=== PATIENT | male | born 1980 | race Caucasian/White ===

== ENCOUNTER 2016-11-26 07:57 | Emergency (ER) | payer OTHER ==
[2016-11-26 08:18] VITALS: RESP 18; BMI 30.6
[2016-11-26] MEDS ORDERED: Amoxicillin-Clav 875-125 mg Tab PO STA (09:02)
[2016-11-26 09:19] VITALS: BP 140/88; PULSE 73; TEMP 98; O2SAT 99
--- NOTE | 2016-11-26 09:42 | ED PDOC ---
Arrival/HPI - General Chief Complaint: ENT Problem Time Seen by Provider: 11/26/16 09:01 Historian: Patient - History of Present Illness Narrative History of Present Illness (Text): 11/26/16 08:57 A 35 year old male, whose past medical history includes allergies, presents to the emergency department complaining of a sore throat for the past 5 days. Patient reports some dysphagia and a mild change in voice but denies any congestion, rhinorrhea, fever, cough, or any other complaints at this time. PMD: None Time/Duration: Other (5 days) Symptom Onset: Sudden Symptom Course: Unchanged Quality: Other Activities at Onset: Rest Context: Home Past Medical History - Provider Review Nursing Documentation Reviewed: Yes - Psychiatric Hx Substance Use: No - Surgical History Hx Musculoskeletal Surgery: Yes (left knee surgery) - Anesthesia Hx Anesthesia: Yes Hx Anesthesia Reactions: No Hx Malignant Hyperthermia: No Family/Social History - Physician Review Nursing Documentation Reviewed: Yes Family/Social History: Unknown Family HX Smoking Status: Light Smoker < 10 Cigarettes Daily Hx Alcohol Use: Yes Frequency of alcohol use: Few days per week Hx Substance Use: No Allergies/Home Meds Allergies/Adverse Reactions: Allergies No Known Allergies Allergy (Verified 11/26/16 08:18) Review of Systems - Physician Review All systems were reviewed & negative as marked: Yes - Review of Systems Constitutional: absent: Fevers ENT: Sore Throat, Other (Dysphagia). absent: Rhinorrhea, Sinus Congestion Physical Exam Vital Signs Reviewed: Yes Vital Signs Temp Pulse Resp BP Pulse Ox 11/26/16 09:18 98 F 73 18 140/88 99 11/26/16 08:13 97.9 F 87 18 152/101 H 98 Temperature: Afebrile Blood Pressure: Hypertensive Pulse: Regular Respiratory Rate: Normal Appearance: Positive for: Well-Appearing, Non-Toxic, Comfortable Pain Distress: None Mental Status: Positive for: Alert and Oriented X 3 - Systems Exam Head: Present: Atraumatic, Normocephalic Pupils: Present: PERRL Extroacular Muscles: Present: EOMI Conjunctiva: Present: Normal Mouth: Present: Moist Mucous Membranes Pharnyx: Present: ERYTHEMA (on the right). No: EXUDATE, TONSILS ENLARGED, Uvular Deviation, Muffled/Hoarse Voice Neck: Present: Normal Range of Motion, Lymphadenopathy (on the right with tenderness on palpation) Respiratory/Chest: Present: Clear to Auscultation, Good Air Exchange. No: Respiratory Distress, Accessory Muscle Use Cardiovascular: Present: Regular Rate and Rhythm, Normal S1, S2. No: Murmurs Abdomen: Present: Normal Bowel Sounds. No: Tenderness, Distention, Peritoneal Signs Back: Present: Normal Inspection Upper Extremity: Present: Normal Inspection. No: Cyanosis, Edema Lower Extremity: Present: Normal Inspection. No: Edema Neurological: Present: GCS=15, CN II-XII Intact, Speech Normal Skin: Present: Warm, Dry, Normal Color. No: Rashes Psychiatric: Present: Alert, Oriented x 3, Normal Insight, Normal Concentration Medical Decision Making ED Course and Treatment: 11/26/16 08:57 Impression: A 35 year old male with a sore throat. Differential Diagnosis include but are not limited to: pharyngitis Plan: -- Augmentin -- Reassess and disposition Progress Notes: On re-evaluation, the patient is in no acute distress. I have discussed the results and plan with the patient, who expresses understanding. Patient in agreement with plan to discharged home. Patient is stable for discharge. Patient was instructed to follow up with physician/clinic in 1-2 days or return if symptoms worsen or new concerning symptoms arise. Patient instructed to follow up PMD for hypertension. - Medication Orders Current Medication Orders: Discontinued Medications Amoxicillin/Clavulanate Potassium (Augmentin 875 Mg-125 Mg Tab) 1 tab PO STAT STA PRN Reason: Protocol Stop: 11/26/16 09:03 Last Admin: 11/26/16 09:13 Dose: 1 tab - Scribe Statement The provider has reviewed the documentation as recorded by the Debby Kay Provider Scribe Attestation: All medical record entries made by the Debby were at my direction and personally dictated by me. I have reviewed the chart and agree that the record accurately reflects my personal performance of the history, physical exam, medical decision making, and the department course for this patient. I have also personally directed, reviewed, and agree with the discharge instructions and disposition. Disposition/Present on Arrival - Present on Arrival Any Indicators Present on Arrival: No History of DVT/PE: No History of Uncontrolled Diabetes: No Urinary Catheter: No History of Decub. Ulcer: No History Surgical Site Infection Following: None - Disposition Have Diagnosis and Disposition been Completed?: Yes Diagnosis: Pharyngitis Disposition: HOME/ ROUTINE Disposition Time: 08:57 Patient Plan: Discharge Condition: GOOD Discharge Instructions (ExitCare): Pharyngitis (ED), Hypertension (ED) Additional Instructions: Mr. Jovel, thank you for letting us take care of you today. Your provider was Dr. White You were treated for Pharyngitis. The emergency medical care you received today was directed at your acute symptoms. If you were prescribed any medication, please fill it and take as directed. It may take several days for your symptoms to resolve. Return to the Emergency Department if your symptoms worsen, do not improve, or if you have any other problems. Please contact your doctor or call one of the physicians/clinics you have been referred to that are listed on the Patient Visit Information form that is included in your discharge packet. Bring any paperwork you were given at discharge with you along with any medications you are taking to your follow up visit. Our treatment cannot replace ongoing medical care by a primary care provider (PCP) outside of the emergency department. Thank you for allowing the [facility] team to be part of your care today. If you had an X-Ray or CT scan: A Radiologist will review the ED reading if any change in treatment is needed we will contact you. If you had a blood, urine, or wound culture: It will take several days for the results, if any change in treatment is needed we will contact you. If you had an STI test: It will take 48 hours for the results. Please call after 1 week if you have not heard back. Prescriptions: Amoxicillin/Clavulanate [Augmentin 875 MG-125 MG] 1 tab PO BID #14 tab Referrals: Braxton Woodson MD [Medical Doctor] - Follow up with primary Forms: [employer] ([place]istani), WORK NOTE
== END 2016-11-26 09:19 | disposition home or self-care (01) ==
LOC: ED 07:57
DX: J02.9 Acute pharyngitis, unspecified (principal)